=== PATIENT | female | born 2000 | race Caucasian/White ===

== ENCOUNTER 2023-08-16 07:46 | Emergency (ER) | payer OTHER ==
[2023-08-16 07:58] VITALS: BP 98/64; RESP 17; TEMP 98.5; BMI 23.1
[2023-08-16 09:11] VITALS: PULSE 96
== END 2023-08-16 09:10 | disposition home or self-care (01) ==
LOC: JER 07:46
DX: F12.929 Cannabis use, unspecified with intoxication, unspecified (principal)
CPT/HCPCS: 99282-25